=== PATIENT | male | born 1980 | race African-American/Black ===

== ENCOUNTER 2016-10-20 10:17 | Emergency (ER) | payer OTHER ==
[~2016-10-20] VITALS: Ht 175.3 cm; Wt 75.7 kg
[2016-10-20 10:36] VITALS: BP 167/97
--- NOTE | 2016-10-20 11:26 | PHYS DOC ---
Past Medical History Past Medical History: No Pertinent History Past Surgical History: No Surgical History Alcohol Use: Rarely Drug Use: Marijuana Adult General Chief Complaint Chief Complaint: ABSCESS HPI HPI Patient is a 35 year old male presents emergency department stating that he has an abscess under his left axilla. He states that he's had this under his left arm for approximately one week. He does state that his mother tried home remedies without success. Patient states he originally thought that it was in infected hair follicle. Patient denies any drainage or discharge coming from the site. Patient denies any fever, chills or any nausea or vomiting. He does state his last tetanus was within the last year. Review of Systems Review of Systems Constitutional: Denies fever or chills [] Eyes: Denies change in visual acuity, redness, or eye pain [] HENT: Denies nasal congestion or sore throat [] Respiratory: Denies cough or shortness of breath [] Cardiovascular: No additional information not addressed in HPI [] GI: Denies abdominal pain, nausea, vomiting, bloody stools or diarrhea [] : Denies dysuria or hematuria [] Musculoskeletal: Denies back pain or joint pain [] Integument: Denies rash or skin lesions. Patient with abscess left axilla Neurologic: Denies headache, focal weakness or sensory changes [] Current Medications Current Medications Current Medications Medications (Trade) Dose Ordered Sig/Jaleesa Start Time Stop Time Status Last Admin Dose Admin Acetaminophen/ Hydrocodone Bitart (Lortab 5/325) 1 tab 1X ONCE 10/20/16 11:45 10/20/16 11:46 DC 10/20/16 11:43 1 TAB Lidocaine/Sodium Bicarbonate (Buffered Lidocaine 1%) 20 ml 1X ONCE 10/20/16 11:45 10/20/16 11:46 DC 10/20/16 11:44 20 ML Allergies Allergies Allergies Coded Allergies Type Severity Reaction Last Updated Verified No Known Drug Allergies 10/20/16 No Physical Exam Physical Exam Constitutional: Well developed, well nourished, no acute distress, non-toxic appearance. [] HENT: Normocephalic, atraumatic, bilateral external ears normal, oropharynx moist, no oral exudates, nose normal. [] Eyes: PERRLA, EOMI, conjunctiva normal, no discharge. [] Neck: Normal range of motion, no tenderness, supple, no stridor. [] Cardiovascular:Heart rate regular rhythm, no murmur [] Lungs & Thorax: Bilateral breath sounds clear to auscultation [] Skin: Warm, dry, no erythema, no rash. Left axilla with area approx size of golf ball with redness, tenderness, no drainage or discharge noted to the area. Fluctuation noted Back: No tenderness Extremities: No tenderness, no cyanosis, no clubbing, ROM intact, no edema. [] Neurologic: Alert and oriented X 3, normal motor function, normal sensory function, no focal deficits noted. [] Psychologic: Affect normal, judgement normal, mood normal. [] Current Patient Data Vital Signs Vital Signs Date Time Temp Pulse Resp B/P Pulse Ox O2 Delivery O2 Flow Rate FiO2 10/20/16 11:43 16 Room Air 10/20/16 10:36 97.3 57 99 97.3 EKG EKG [] Radiology/Procedures Radiology/Procedures [] Course & Med Decision Making Course & Med Decision Making Pertinent Labs and Imaging studies reviewed. (See chart for details) She will be placed on Bactrim 1 tablet twice a day for the next 10 days. Patient will be provided with hydrocodone for pain and discomfort he was instructed this medication will cause drowsiness do not take any be alert and oriented. Recommended follow-up with a primary care in 2 days to have the packing removed. Recommended warm moist packs to the area on 20 minutes 4 times a day. Signs and symptoms to return back to emergency department has been provided. Patient agrees with discharge instructions treatment regimens and follow-up recommendations. [] Dragon Disclaimer Dragon Disclaimer This electronic medical record was generated, in whole or in part, using a voice recognition dictation system. Departure Departure Impression: Primary Impression: Abscess Disposition: 01 HOME, SELF-CARE Condition: STABLE Referrals: NO PCP (PCP) Patient Instructions: Abscess, [id number] Additional Instructions: Activity as tolerated. Keep the area clean and dry. Medication as prescribed. Brayton will cause drowsiness do not take any be alert and oriented. Ibuprofen for pain and discomfort. Follow-up with her primary care physician in the next 2-3 days for packing removal. Return back to emergency prior signs symptoms of become worse. Scripts Hydrocodone/Apap 5-325 (Brayton 5-325 Tablet)1 Each Tablet1 Tab PO PRN Q6HRS PRN PAIN #10 TAB Prov:SHOSHANA DONALDSON NP 10/20/16 Sulfamethoxazole/Trimethoprim (Bactrim Ds Tablet)1 Each Tablet1 Tab PO BID #20 TAB Prov:SHOSHANA DONALDSON NP 10/20/16 Incision and Drainage Incision and Drainage : Site: left axilla Blade Size: 11 I & D Procedure: betadine prep sterile drapes applied gauze wick placed Progress Betadine prep was used to cleanse the area. 1% lidocaine buffered with 5 mL injected into the area. Site was incised with a #11 blade with thick yellow drainage noted. Site was then packed with half-inch Nu Gauze. SHOSHANA DONALDSON NP Oct 20, 2016 11:26
[2016-10-20] MEDS ORDERED: HYDROCODONE/APAP 5/325MG TABLET. PO ONE (11:45)
[2016-10-20] MEDS ORDERED: LIDOCAINE 1% / SOD BICARB 8.4% 20 ML VIAL. IJ ONE (11:45)
[2016-10-20] MEDS ORDERED: HYDR-971 PO (12:29)
[2016-10-20] MEDS ORDERED: SULF1TAB24 PO (12:29)
== END 2016-10-20 12:46 | disposition home or self-care (01) ==
LOC: ER 10:17
DX: L02.412 Cutaneous abscess of left axilla (principal); F12.10 Cannabis abuse, uncomplicated
CPT/HCPCS: 10060; 99283-25

== ENCOUNTER 2016-12-10 22:29 | Emergency (ER) | payer OTHER ==
[~2016-12-10] VITALS: Ht 177.8 cm; Wt 75.7 kg
[~2016-12-10 22:29] MED LIST: HYDR-971 PO; SULF1TAB24 PO
--- NOTE | 2016-12-10 22:55 | PHYS DOC ---
Past Medical History Past Medical History: No Pertinent History, Other Additional Past Medical Histor: Traumatic brain injury Past Surgical History: No Surgical History, Other Additional Past Surgical Histo: trach and removed, brain sx Alcohol Use: Rarely Drug Use: Marijuana Adult General Chief Complaint Chief Complaint: ALLERGIC REACTION HPI HPI Patient is a 35 year old male brought to the ED by his mother with the complaint of possible allergic reaction. The patient "smoked some weed" earlier this evening and afterward noticed that his tongue was swelling. His mom looked at his tongue and saw that it was swollen as well. His mom said that his face was flushed. The patient describes of visual disturbance which "looked like things were moving slow and then they were moving fast". The patient states he has smoked pot before and this has never happened to him. The patient's mom is concerned that he may have had an allergic reaction. She gave him 2 over-the- counter Benadryl and he states his tongue feels better. Review of Systems Review of Systems Constitutional: Denies fever or chills [] Eyes: Denies change in visual acuity, redness, or eye pain [] HENT: Denies nasal congestion or sore throat [] Respiratory: Denies cough or shortness of breath [] Cardiovascular: Denies chest pain GI: Denies abdominal pain, nausea, vomiting, bloody stools or diarrhea [] : Denies dysuria or hematuria [] Musculoskeletal: Denies back pain or joint pain [] Integument: Denies rash or skin lesions [] Neurologic: Denies headache, focal weakness or sensory changes [] Allergies Allergies Allergies Coded Allergies Type Severity Reaction Last Updated Verified No Known Drug Allergies 10/20/16 No Physical Exam Physical Exam Constitutional: Well developed, well nourished, no acute distress, non-toxic appearance. Alert, mentating normally, no dyspnea or stridor. HENT: Normocephalic, atraumatic, bilateral external ears normal, oropharynx moist, no oral exudates, tongue is not swollen, there is no oral swelling, nose normal. [] Eyes: PERRLA, EOMI, conjunctiva normal, no discharge. [] Neck: Normal range of motion, no stridor. [] Cardiovascular:Heart rate regular rhythm, no murmur [] Lungs & Thorax: Bilateral breath sounds clear to auscultation [] Skin: Warm, dry, no erythema, no rash. No flushing, no urticaria. Extremities: No tenderness, no cyanosis, no clubbing, ROM intact, no edema. [] Neurologic: Alert and oriented X 3, normal motor function, normal sensory function, no focal deficits noted. [] Current Patient Data Vital Signs Vital Signs Date Time Temp Pulse Resp B/P Pulse Ox O2 Delivery O2 Flow Rate FiO2 12/10/16 22:41 98.6 60 16 130/63 98 Room Air 98.6 EKG EKG [] Radiology/Procedures Radiology/Procedures [] Course & Med Decision Making Course & Med Decision Making Pertinent Labs and Imaging studies reviewed. (See chart for details) 35-year-old male brought to the ED by his mother with concern for possible allergic reaction after smoking weed. On ED evaluation, there is absolutely no clinical evidence of any type of allergic reaction. There is no swelling of the lips, tongue, or face, no stridor, no wheezing, no skin changes or hives. I discussed with the patient and his mother that when you smoke weed, you never really know what you are getting, cautioned him that he may purchase something that is reported to be weed but could be cut with other substances or could be something else altogether. Cautioned him against this in the future. He does not have any more of the substance that he smoked earlier. Mom will be able to stay with him tonight and keep an eye on him. Patient is stable for discharge. [] Dragon Disclaimer Dragon Disclaimer This electronic medical record was generated, in whole or in part, using a voice recognition dictation system. Departure Departure Impression: Primary Impression: Adverse reaction to cannabis Disposition: 01 HOME, SELF-CARE Condition: STABLE Referrals: KATHY PACHECO MD (PCP) Patient Instructions: Marijuana Abuse-Brief Additional Instructions: As we discussed, when you smoke marijuana, you are never really sure what you' re getting. It may be some other type of plant material or it may be "cut" with other substances even like PCP or LSD. I recommend that you avoid smoking marijuana or doing other illicit drugs. If your symptoms of tongue swelling return, you may take another dose of Benadryl, if you are concerned about symptoms, return for recheck. Stay with someone tonight who can watch you. SHANE STARKS MD December 10, 2016 22:55
[2016-12-10 23:00] VITALS: BP 125/61
== END 2016-12-10 23:00 | disposition home or self-care (01) ==
LOC: ER 22:29
DX: T40.7X5A Adverse effect of cannabis (derivatives), initial encounter (principal); K14.8 Other diseases of tongue; Z87.820 Personal history of traumatic brain injury; Y92.89 Other specified places as the place of occurrence of the external cause
CPT/HCPCS: 99281